=== PATIENT | male | born 1960 | race Caucasian/White ===

== ENCOUNTER → 2016-04-23 | Outpatient (CLI) | payer BC ==
--- NOTE | 2016-04-23 18:08 | DX ---
PA and Lateral Chest History: Dyspnea on exertion in a 55-year-old male; no previous studies are available for comparison. Findings: The heart and mediastinal contours are normal. Pulmonary vascularity is normal. There is c entral peribronchial thickening. There are no alveolar opacities seen to suggest pneumonia. There is mild elevation of the anterior aspect of the right hemidiaphragm. Impression: Findings most consistent with airways disease are noted.
== END ==
LOC: CIMAGING 13:57
PROVIDERS: ATTEND Internal Medicine Pulmonary Disease
DX: R06.00 Dyspnea, unspecified (principal)
CPT/HCPCS: 71020-PO

== ENCOUNTER 2016-05-14 11:33 | Day surgery (SDC) | payer BC ==
[2016-05-14] MEDS ORDERED: FAMOTIDINE 20 MG TAB PO ONE (12:08)
[2016-05-14] MEDS ORDERED: NS 1,000 ML IV ONE (12:08)
[2016-05-14] MEDS ORDERED: ASPIRIN EC 325 MG TAB PO ONE (12:08)
[2016-05-14] MEDS ORDERED: diphenhydrAMINE 25 MG CAP PO ONE (12:08)
[2016-05-14] MEDS ORDERED: DIAZEPAM 5 MG TAB PO ONE (12:08)
[2016-05-14] MEDS ORDERED: LIDOCAINE 1% 30 ML SDV ONE (12:14)
[2016-05-14] MEDS ORDERED: MIDAZOLAM 2 MG/2 ML VIAL ONE (12:15)
[2016-05-14] MEDS ORDERED: fentaNYL 100 MCG/2 ML INJ ONE (12:15)
[2016-05-14] MEDS ORDERED: VERAPAMIL 5 MG/2 ML VIAL ONE (12:16)
[2016-05-14] MEDS ORDERED: IOPAMIDOL (ISOVUE-370) 150 ML BTL IV ONE ×2 (12:16→13:15)
[2016-05-14] MEDS ORDERED: HEPARIN 10,000 UNIT/10 ML MDV ONE (12:16)
[2016-05-14 12:18] LABS: % IMMATURE GRANULYOCYTES 0.4 % (0.0-1.1); ABSOLUTE IMMATURE GRANULOCYTES 0.02 10^3/uL (0.00-0.10); ADD DIFF? NO; ADD MORPH? NO; ADD SCAN? NO; ATYPICAL LYMPHOCYTE FLAG 0 (0-99); FRAGMENT RBC FLAG 0 (0-99); HEMATOCRIT 43.6 % (40.0-51.0); HEMOGLOBIN 15.6 g/dL (13.7-17.5); LEFT SHIFT FLG 0 (0-99); LIPEMIA HEMOLYSIS FLAG 90 (0-99); MEAN CELL HEMOGLOBIN 30.5 pg (27.9-34.1); MEAN CELL HEMOGLOBIN CONCENTR. 35.8 g/dL (32.4-36.7); MEAN CELL VOLUME 85.2 fL (81.5-99.8); MEAN PLATELET VOLUME 9.5 fL (8.7-11.7); PLATELET CLUMPS FLAG 0 (0-99); PLATELET COUNT 244 10^3/uL (150-400); RED BLOOD CELL COUNT 5.12 10^6/uL (4.40-6.38); RED CELL DISTRIBUTION WIDTH 12.8 % (11.5-15.2)
--- NOTE | 2016-05-14 12:18 | CPEKG ---
Heart Rate: 56 RR Interval: 1071 P-R Interval: 192 QRSD Interval: 92 QT Interval: 424 QTC Interval: 410 P Lowell: 37 QRS Lowell: 61 T Wave Lowell: 50 EKG Severity - BORDERLINE ECG - EKG Impression: SINUS RHYTHM EKG Impression: BORDERLINE T WAVE ABNORMALITIES Electronically Signed By: Papo Lal 15-May-2016 16:56:14
[2016-05-14 12:42] LABS: INR 0.96 (0.83-1.16); PROTIME(PATIENT) 12.7 SEC (12.0-15.0)
[2016-05-14 12:44] LABS: ANION GAP 11 mEq/L (8-16); CALCIUM 9.8 mg/dL (8.5-10.4); CARBON DIOXIDE 23 mEq/l (22-31); CHLORIDE 105 mEq/L (97-110); CHOLESTEROL 214 mg/dL (140-220); CHOLESTEROL/HDL RATIO 4.98 RATIO (1.00-4.97); GLOMERULAR FILTRATION RATE > 60; GLUCOSE 91 mg/dL (70-100); HIGH DENSITY LIPOPROTEIN 43 mg/dL (40-65); LDL/HDL RATIO 2.98 RATIO (1.00-3.64); LOW DENSITY LIPOPROTEIN 128 mg/dL (80-100); MAGNESIUM 2.1 mg/dL (1.6-2.3); NON-HIGH DENSITY LIPOPROTEIN 171 mg/dL (90-129); POTASSIUM 4.5 mEq/L (3.5-5.2); SODIUM 139 mEq/L (134-144); TRIGLYCERIDE 217 mg/dL (40-150); VERY LOW DENSITY LIPOPROTEINS 43 mg/dL (8-25)
[2016-05-14] MEDS ORDERED: ONDANSETRON 4 MG/2 ML VIAL IVP PRN (13:29)
[2016-05-14] MEDS ORDERED: NITROGLYCERIN 0.4 MG BTL SL PRN (13:29)
[2016-05-14] MEDS ORDERED: ATROPINE SULFATE 1 MG/10 ML SYR IVP PRN (13:29)
[2016-05-14] MEDS ORDERED: METOPROLOL SUCCINATE XR 25 MG TAB PO SCH (13:30)
== END 2016-05-14 17:05 | disposition home or self-care (01) ==
LOC: FCATH 11:33
PROVIDERS: ATTEND Internal Medicine Interventional Cardiology
PROC: B2111ZZ Fluoroscopy of Multiple Coronary Arteries using Low Osmolar Contrast (ICD-10-PCS; principal; 2016-05-14)
PROC: B2151ZZ Fluoroscopy of Left Heart using Low Osmolar Contrast (ICD-10-PCS; principal; 2016-05-14)
PROC: 4A023N7 Measurement of Cardiac Sampling and Pressure, Left Heart, Percutaneous Approach (ICD-10-PCS; principal; 2016-05-14)
DX: R07.9 Chest pain, unspecified (principal); R06.00 Dyspnea, unspecified; E78.5 Hyperlipidemia, unspecified; Z82.49 Family history of ischemic heart disease and other diseases of the circulatory system
CPT/HCPCS: 93005; 93458; C1769; J1644; J2250; J3010; Q9967